=== PATIENT | male | born 1965 | race Caucasian/White ===

== ENCOUNTER 2023-01-02 09:18 | Outpatient (CLI) | payer OTHER, SELFPAY | END 2023-01-02 09:19 | disposition home or self-care (01) | PROVIDERS: PCP Family Medicine; Visit Provider Family Medicine | DX: L50.9 Urticaria, unspecified (principal) | CPT/HCPCS: 80048; 85025; 85651 ==

== ENCOUNTER 2023-05-19 16:20 | Outpatient (CLI) | payer OTHER, SELFPAY ==
[2023-05-19 22:01] LABS: Amphetamine Screen Urine Negative (Negative); Barbiturate Screen Urine Negative (Negative); Benzodiazepines Screen Urine Negative (Negative); Cannabinoid Screen Urine Negative (Negative); Cocaine Screen Urine Negative (Negative); Methadone Screen Urine Negative (Negative); Methamphetamines Screen Urine Negative (Negative); Opiate Screen Urine Negative (Negative); Oxycodone Screen Urine Negative (Negative); Phencyclidine Screen Urine Negative (Negative); Tricyclic Antidepressant Urine Negative (Negative)
== END 2023-05-19 16:21 | disposition home or self-care (01) ==
PROVIDERS: PCP Family Medicine; Visit Provider Family Medicine
DX: R41.0 Disorientation, unspecified (principal); R35.0 Frequency of micturition; Z13.29 Encounter for screening for other suspected endocrine disorder; Z02.83 Encounter for blood-alcohol and blood-drug test
CPT/HCPCS: 80053; 80306; 81015; 84443; 85025

== ENCOUNTER 2023-05-30 07:05 | Outpatient (CLI) | payer OTHER, SELFPAY ==
--- NOTE | 2023-05-30 07:15 | CRLHL7_ITS ---
For Patients: As a result of the Century Cures Act, medical imaging exams and procedure reports are released immediately into your electronic medical record. You may view this report before your referring provider. If you have questions, please contact your health care provider. INDICATION: Other symptoms and signs involving cognitive function. TECHNIQUE: Multiplanar multisequence noncontrast MR images acquired through the brain. COMPARISON: None. FINDINGS: The ventricles and sulci are within normal limits for patient age. No mass effect or midline shift. No parenchymal signal abnormalities. No intracranial hemorrhage or pathologic extra-axial fluid collection. No diffusion restriction to suggest acute infarction. The major arterial flow voids of the skullbase are preserved. The globes are symmetric. Minimal paranasal sinus mucosal thickening. Minimal left mastoid fluid. Non-expansile T2 hyperintensity in the right petrous apex, most typical for trapped fluid. Incidental small Tornwaldt cyst. IMPRESSION: Unremarkable noncontrast MRI of the brain. Dictated by Al Herman MD @ 05/30/2023 1:03:54 PM (Electronically Signed)
== END 2023-05-30 07:06 | disposition home or self-care (01) ==
LOC: MRI 07:05
PROVIDERS: PCP Family Medicine; Visit Provider Family Medicine
DX: R41.89 Other symptoms and signs involving cognitive functions and awareness (principal)
CPT/HCPCS: 70551

== ENCOUNTER 2023-11-07 15:06 | Outpatient (CLI) | payer OTHER, SELFPAY ==
--- NOTE | 2023-11-07 15:30 | MR_ITS ---
[facility] [address] [facility] [address] Phone:?[phone] Fax:?[phone] Referring Physician Information: Mateo Reza M.D. [address] [place] [id number] Phone:?[phone] Fax:?[phone] Patient:Kellie Can D.O.B:?1965 Sex:?Male Phone:?[phone] [facility] MRN:?[id number] Exam Date:?11/07/2023 EXAM: MRI of the LEFT SHOULDER, without contrast CLINICAL HISTORY: Pain in the left shoulder. Evaluate for rotator cuff tear. COMPARISONS: Plain radiographs 10/27/2023. TECHNICAL: MRI sequences of the left shoulder: Axials: PD, T2 Coronals: PD, STIR, T2 Sagittals: PD, T2 SEDATION: None CONTRAST: None FINDINGS: Bones: No fracture or suspicious bone marrow signal abnormality. Coracoacromial arch: Acromion: No os acromiale. Type II acromion. Acromiohumeral space: The bony distance is unremarkable. Acromioclavicular joint: No acute injury, arthropathy, or inferior hypertrophy. Coracoclavicular ligament: The coracoclavicular ligament is intact. Rotator cuff muscles/tendons: Supraspinatus: The supraspinatus tendon and muscle are intact. Infraspinatus: The infraspinatus tendon and muscle are intact. Teres minor: The teres minor tendon and muscle are intact. Subscapularis: Slight subscapularis tendinopathy. No muscular atrophy. Labrum and glenohumeral joint: No evidence of labral tear although evaluation is suboptimal because of nonarthrogram technique. Physiologic amount of joint fluid. No discrete chondral defect or subchondral bone marrow edema/cystic change is seen. There is soft tissue thickening within the rotator interval. There is edema-like signal within and thickening of the glenohumeral joint capsule/inferior glenohumeral ligament. Proximal biceps tendon, long head and short heads: The long and short heads of the proximal biceps tendon are intact. Bursae: Subacromial/subdeltoid: No convincing subacromial bursal thickening/bursitis. Subcoracoid: No convincing subcoracoid bursal thickening/bursitis. IMPRESSION: 1. The most striking findings in this case are those associated with adhesive capsulitis; correlate with active and passive range of motion. 2. Slight subscapularis tendinopathy. 3. Otherwise, unremarkable MRI of the left shoulder without discrete rotator cuff tendon tear, rotator cuff muscular atrophy, or biceps pathology. No evidence of labral tear on this nonarthrogram study. RCB Electronically signed on 11/07/2023 5:00:00 PM by Colten Magallon M.D.
== END 2023-11-07 15:07 | disposition home or self-care (01) ==
LOC: MRI 15:06
PROVIDERS: PCP Family Medicine; Visit Provider Orthopaedic Surgery
DX: M25.512 Pain in left shoulder (principal); M75.02 Adhesive capsulitis of left shoulder
CPT/HCPCS: 73221

== ENCOUNTER 2024-01-07 16:47 | Emergency (ER) | payer OTHER, SELFPAY ==
[2024-01-07] VITALS (7 sets, daily range): BP systolic 112–124; BP diastolic 70–85; PULSE 53–62; RESP 12–16; TEMP 36.3; O2SAT 97–100; BMI 21.0
--- NOTE | 2024-01-07 17:15 | ED_ITS ---
HPI - General Adult General Date Seen: 01/07/24 Chief complaint: Cough Stated complaint: cold and cough-vomiting blood clots Time Seen by Provider: 01/07/24 16:52 Source: patient Mode of arrival: ambulatory Limitations: no limitations History of Present Illness HPI narrative: Patient is a 58-year-old male presenting to the emergency department for cough and hemoptysis. States she has been sick with a cough for the past week but has been having worsening of the symptoms. Denies having symptoms like this before. Does states he has been having chills, weakness, dizziness. Does have chest pain when he is coughing. Has not had any fevers. Is not aware of any sick contacts. No history of blood clots. Does smoke cigarettes and states he has less than a pack a day but also vapes medical marijuana. No history of cancer. States the hemoptysis started today and he is it is multiple clots that he coughed up. States he has been staying well hydrated. Related Data Home Medications Medication Instructions Recorded Confirmed Medical Cannibis PO 05/06/22 11/19/23 Previous Rx's Medication Instructions Recorded albuterol sulfate 90 mcg/actuation 2 puff inhalation Q4-6H PRN 06/24/23 aerosol inhaler shortness of breath or wheezing #8.5 grams trazodone 100 mg tablet 50 - 100 mg (0.5 - 1 x 100 mg) PO 11/26/23 .hs #90 tabs albuterol sulfate 90 mcg/actuation 2 puff inhalation Q4-6H PRN 01/07/24 aerosol inhaler shortness of breath or wheezing #8.5 grams azithromycin 250 mg tablet See Rx Instructions PO .COMPLEX #6 01/07/24 (Zithromax) tabs Allergies Allergy/AdvReac Type Severity Reaction Status Date / Time naproxen Allergy Severe Hives Verified 01/07/24 18:49 NSAIDS (Non-Steroidal Allergy Severe Hives Verified 01/07/24 18:49 Anti-Inflamma penicillin V Allergy Severe Hives Verified 01/07/24 18:49 shellfish derived Allergy Unknown Unknown Verified 01/07/24 18:49 Review of Systems Status of ROS: Reports: 10 or more systems reviewed and unremarkable except as noted in History and below PFSH PFS Medical History Cognitive decline ?R41.89 - Other symptoms and signs involving cognitive functions and awareness (ICD-10) Urticaria ?L50.9 - Urticaria, unspecified (ICD-10) Major depression, recurrent ?F33.9 - Major depressive disorder, recurrent, unspecified (ICD-10) History of Helicobacter pylori infection ?Z86.19 - Personal history of other infectious and parasitic diseases (ICD-10 ) Hearing loss ?H91.90 - Unspecified hearing loss, unspecified ear (ICD-10) Chronic pain in left foot ?M79.672 - Pain in left foot (ICD-10) ?G89.29 - Other chronic pain (ICD-10) Chronic low back pain ?M54.50 - Low back pain, unspecified (ICD-10) ?G89.29 - Other chronic pain (ICD-10) [facility] (generalized anxiety disorder) ?F41.1 - Generalized anxiety disorder (ICD-10) Insomnia ?G47.00 - Insomnia, unspecified (ICD-10) Surgical History Status post hammer toe correction (08/17/18) ?Z98.890 - Other specified postprocedural states (ICD-10) ?Z87.39 - Personal history of other diseases of the musculoskeletal system and connective tissue (ICD-10) History of appendectomy (2008) ?Z90.49 - Acquired absence of other specified parts of digestive tract (ICD- 10) Family History Mother Breast cancer Father Myocardial infarction Diabetes Social History Narrative: - Radha, [employer], smoker, occasional EtOH Medical marijuana use Smoking Status: Current every day smoker Do you use any of these nicotine containing products: None Second hand tobacco smoke exposure: Yes ( smokes) Non-prescribed substance use: denies use Little interest or pleasure in doing things: not at all Feeling down, depressed, or hopeless: not at all Exam Narrative: Exam Narrative: Const: Well-nourished, Well-developed, in mild distress Eyes: PERRL, no conjunctival injection, and symmetrical lids HENT: Atraumatic external nose and ears. Moist mucous membranes. Neck: Symmetric, trachea midline, No thyromegaly. CVS: RRR, No murmurs or gallops. Peripheral pulses 2+ and equal in all extremities RESP: Unlabored respiratory effort. Clear to auscultation bilaterally. GI: Nontender/Nondistended, No rebound or guarding. MSK:Extremities w/o deformity, Normal Active ROM Skin: Warm, Dry. No rashes or lesions. Neuro: Normal Muscle tone, No focal neurological deficits. Psych: Awake, Alert, & Oriented x3. Appropriate mood and affect. Const: Vital Signs, click to edit/add: Vital Signs - 24 hr 01/07/24 16:52 01/07/24 17:54 01/07/24 18:02 Temperature 97.4 F L Pulse Rate 61 58 L Pulse Rate [Pulse Oximeter] 62 Respiratory Rate 14 14 16 Blood Pressure 112/81 120/85 Blood Pressure [Ri ght Upper Arm] 123/76 Pulse Oximetry 100 100 100 Oxygen Delivery Me thod Room Air 01/07/24 18:31 01/07/24 19:01 01/07/24 19:31 Temperature Pulse Rate 53 L 57 L 58 L Pulse Rate [Pulse Oximeter] Respiratory Rate 14 12 14 Blood Pressure 116/71 113/70 124/75 Blood Pressure [Ri ght Upper Arm] Pulse Oximetry 97 99 98 Oxygen Delivery Me thod 01/07/24 19:37 Temperature 97.4 F L Pulse Rate Pulse Rate [Pulse Oximeter] 62 Respiratory Rate 16 Blood Pressure Blood Pressure [Ri ght Upper Arm] 123/76 Pulse Oximetry Oxygen Delivery Me thod Course Vital Signs Vital signs: Initial Vital Signs Temperature 97.4 F L 01/07/24 16:52 Temperature Source Temporal Artery Scan 01/07/24 16:52 Pulse Rate 62 01/07/24 16:52 Pulse Rhythm Regular 01/07/24 16:52 Respiratory Rate 14 01/07/24 16:52 Blood Pressure 123/76 01/07/24 16:52 Blood Pressure Mean 91 01/07/24 16:52 Blood Pressure Position Sitting 01/07/24 16:52 Pulse Oximetry 100 01/07/24 16:52 Oxygen Delivery Method Room Air 01/07/24 16:52 Vital Signs Temperature 97.4 F L 01/07/24 16:52 Pulse Rate 62 01/07/24 16:52 Respiratory Rate 14 01/07/24 16:52 Blood Pressure 123/76 01/07/24 16:52 Pulse Oximetry 100 01/07/24 16:52 Oxygen Delivery Method Room Air 01/07/24 16:52 Temperature 97.4 F L 01/07/24 19:37 Pulse Rate 62 01/07/24 19:37 Respiratory Rate 16 01/07/24 19:37 Blood Pressure 123/76 01/07/24 19:37 Pulse Oximetry 98 01/07/24 19:31 Oxygen Delivery Method Room Air 01/07/24 16:52 Medications Administered Medications: Discontinued Medications Generic Name Dose Route Start Last Admin Trade Name Luisq PRN Reason Stop Dose Admin Albuterol 2.5 mg 01/07/24 17:11 01/07/24 17:47 Albuterol Sulfate 2.5 Mg/3 Ml Vial.Neb NEB 01/07/24 17:12 2.5 mg ONCE ONE Administration Albuterol 5 mg 01/07/24 18:55 01/07/24 19:04 Albuterol Sulfate 2.5 Mg/3 Ml Vial.Neb NEB 01/07/24 18:56 5 mg ONCE ONE Administration Medical Decision Making [facility] Narrative Medical decision making narrative: Patient is a 58-year-old male presenting for cough and hemoptysis. We will do a COVID/flu/RSV test, EKG, BMP, CBC, coags, D-dimer. Was lungs sounded clear I will try some albuterol this even helped with his cough. Imaging will be done pending D-dimer results. Patient's lab work all returned showing no concerning abnormalities. COVID/flu/RSV is negative. Troponin within normal limits. Urinalysis shows no concerning findings. Coags are within normal limits. Patient does think he had some improvement with the albuterol treatments so another dose was given. Will do a CT scan of the chest with contrast to look for signs of cancer. Reviewed by myself and the radiologist and shows no concerning abnormalities. At this time I cannot definitively say what is causing his hemoptysis but he is having u pper respiratory symptoms similar to that of a respiratory infection. I will start the patient on a Z-Aleksandr. I informed him to have close follow-up with his primary care provider if symptoms persist. He is agreeable to this plan. Also give him an albuterol inhaler and spacer as he said it helped his symptoms. Lab Data Labs: Lab Results 01/07/24 01/07/24 01/07/24 Range/Units 17:45 17:45 17:45 WBC 8.82 (4.50-11.00) K/uL RBC 5.24 (4.30-5.90) m/uL Hgb 14.9 (13.5-17.5) gm/dL Hct 45.7 (37.0-53.0) % MCV 87 (80-100) fL MCH 28 (26-34) pg MCHC 33 (32-36) gm/dL RDW Coeff of Natalia 13.0 (11.5-15.5) % Plt Count 326 (140-440) K/uL Neut % (Auto) 66.8 (42.0-72.0) % Lymph % (Auto) 24.6 (20-44) % [place] % (Auto) 5.4 (0.0-11.0) % Eos % (Auto) 2.3 (0.0-7.0) % Baso % (Auto) 0.7 (0.0-3.0) % Neut # (Auto) 5.89 (1.7-7.0) K/uL Lymph # (Auto) 2.17 (0.90-2.90) K/uL [place] # (Auto) 0.50 (0.00-0.90) K/UL Eos # (Auto) 0.20 (0.00-0.50) K/uL Baso # (Auto) 0.06 (0.00-0.30) K/uL Abs Immat Gran (auto) 0.02 (0.00-0.30) K/uL Imm/Tot Granulo (auto) 0.2 % INR 0.89 L (0.91-1.10) APTT Cancelled 33 D-Dimer Quant (PE/DVT) 0.34 (0.00-0.50) ug/ml Sodium 140 (135-149) mmol/L Potassium 4.2 (3.6-5.1) mmol/L Chloride 103 (96-114) mmol/L Carbon Dioxide 27 (20-32) mmol/L Anion Gap 10 (7-15) mEq/L BUN 12 (7-30) mg/dL Creatinine 1.0 (0.5-1.5) mg/dL Estimated Creat Clear 88.90 Estimated GFR 88 ml/min Glucose 88 (60-115) mg/dL Calcium 9.8 (8.4-10.6) mg/dL Troponin I < 0.01 L Cancelled (0.01-0.04) ng/mL Urine Color Yellow (Yellow) Urine Appearance Clear (Clear) Urine pH 6.0 (5.0-8.5) Ur Specific [place] <= 1.005 (1.000-1.030) Urine Protein Negative (Negative) Urine Glucose (UA) Negative (Negative) Urine Ketones Negative (Negative) Urine Blood Negative (Negative) Urine Nitrite Negative (Negative) Urine Bilirubin Negative (Negative) Urine Urobilinogen 0.2 (0.2-1.0) Ur Leukocyte Esterase Negative (Negative) Urine RBC 0-2 (0-2) Urine WBC 0-2 (0-5) Ur Squamous Epith Cells Few (None-Few) Urine Bacteria None (None) SARS-CoV-2 (PCR) Negative SARS-CoV-2 (Negative) Influenza Type A (PCR) Negative PCR FLU A (Negative) Influenza Type B (PCR) Negative PCR FLU B (Negative) RSV (PCR) Negative PCR RSV (Negative) Imaging Data CT scan chest: Radiologist's impression: Unremarkable CT of the chest. No acute findings or findings to explain the patient`s hemoptysis. Please note that all CT scans at this facility use dose modulation, iterative reconstruction, and/or weight-based dosing when appropriate to reduce radiation dose to as low as reasonably achievable. Dictated by Ashwin Choudhury MD @ 01/07/2024 7:08:25 PM ECG Data Attestation: I personally reviewed and interpreted this ECG as follows: Prior ECG tracings: not available for review Interpretation: Sinus bradycardia rate 57 beats per minute, normal intervals, normal axis, no ST or T-wave abnormalities. Discharge Plan Discharge Clinical Impression: Hemoptysis Patient Disposition: Home, Self-Care Condition: Improved Instructions: Coughing Up Blood (Hemoptysis) (ED) Additional Instructions: Take the azithromycin as directed. If the coughing becomes difficult to control try using the inhaler and make sure you use a spacer with it. If you continue to have hemoptysis over the next few days you should follow-up with your primary care provider for further outpatient testing. Return to emergency department for new or worsening symptoms. Prescriptions: New azithromycin [Zithromax] 250 mg tablet See Rx Instructions .ROUTE .COMPLEX Qty: 6 0RF Rx Instructions: For 250 mg dose pack: take 500 mg today (day 1), then 250 mg for 4 days (days 2-5) albuterol sulfate 90 mcg/actuation HFA aerosol inhaler 2 puff inhalation Q4-6H PRN (Reason: shortness of breath or wheezing) Qty: 8.5 0RF No Action Medical Cannibis PO albuterol sulfate 90 mcg/actuation HFA aerosol inhaler 2 puff inhalation Q4-6H PRN (Reason: shortness of breath or wheezing) Qty: 8.5 0RF trazodone 100 mg tablet 50 - 100 mg PO .hs Qty: 90 1RF Follow Up/Referrals: Miguelito Woodard MD [Primary Care Provider] - Stand Alone Forms: [employer] Info Instructions
[2024-01-07] MEDS: ALBUTEROL SULFATE 2.5 MG/3 ML VIAL.NEB NEB (17:47)
[2024-01-07 18:01] LABS: Basophils Absolute Auto 0.06 K/uL (0.00-0.30); Basophils Percent Auto 0.7 % (0.0-3.0); Eosinophils Percent Auto 2.3 % (0.0-7.0); Hematocrit 45.7 % (37.0-53.0); Hemoglobin* 14.9 gm/dL (13.5-17.5); Immature Granulocytes Abs Auto 0.02 K/uL (0.00-0.30); Immature Granulocytes Pct Auto 0.2 %; Lymphocytes Absolute Auto 2.17 K/uL (0.90-2.90); Lymphocytes Percent Auto 24.6 % (20-44); Mean Corpuscular HGB Conc 33 gm/dL (32-36); Mean Corpuscular Hemoglobin 28 pg (26-34); Mean Corpuscular Volume 87 fL (80-100); Monocytes Percent Auto 5.4 % (0.0-11.0); Neutrophils Absolute Auto 5.89 K/uL (1.7-7.0); Neutrophils Percent Auto 66.8 % (42.0-72.0); Platelet Count* 326 K/uL (140-440); Red Blood Count 5.24 m/uL (4.30-5.90); White Blood Count* 8.82 K/uL (4.50-11.00)
[2024-01-07 18:02] LABS: Slide Review Reflex No
[2024-01-07 18:13] LABS: Chloride* 103 mmol/L (96-114)
[2024-01-07 18:14] LABS: Potassium* 4.2 mmol/L (3.6-5.1); Sodium* 140 mmol/L (135-149)
[2024-01-07 18:16] LABS: Estimated Glomerular Filt Rate 88 ml/min; INR 0.89 (0.91-1.10); Partial Thromboplastin Time* 33 Seconds (23-33); Prothrombin Time 12.6 Seconds
[2024-01-07 18:17] LABS: Anion Gap 10 mEq/L (7-15); Blood Urea Nitrogen* 12 mg/dL (7-30); Calcium* 9.8 mg/dL (8.4-10.6); Carbon Dioxide* 27 mmol/L (20-32); Glucose* 88 mg/dL (60-115)
[2024-01-07 18:18] LABS: D Dimer Quantitative* 0.34 ug/ml (0.00-0.50)
[2024-01-07 18:23] LABS: Appearance Urine Clear (Clear); Bilirubin Urine Negative (Negative); Blood Urine Negative (Negative); Color Urine Yellow (Yellow); Glucose Urine Negative (Negative); Ketones Urine Negative (Negative); Leukocyte Esterase Urine Negative (Negative); Nitrite Urine Negative (Negative); Protein Urine Negative (Negative); Specific Gravity Urine <= 1.005 (1.000-1.030); Urobilinogen Urine 0.2 (0.2-1.0)
[2024-01-07 18:29] LABS: Troponin I* < 0.01 ng/mL (0.01-0.04)
--- NOTE | 2024-01-07 18:32 | CT_ITS ---
Patient: RITA ALCANTARA Facility:?[facility] Patient ID:?[id number] Site Patient ID:?[id number] Site :?1965 Study:?CT-Chest W/ 75CC ISOVUE 370-01/07/2024 6:56:11 PM Ordering Physician:BLAIR Final Report: INDICATION: Hemoptysis. TECHNIQUE: CT chest was acquired with 75 cc Isovue 370 IV contrast. COMPARISON: Chest radiograph 01/14/2022. FINDINGS: Lungs and pleura: Mild to moderate centrilobular and mild paraseptal emphysema. No consolidation or suspicious nodule. No pleural effusions, pleural thickening, or pneumothorax. The central airways are clear. Heart and vasculature: Heart size is normal. Thoracic aorta and pulmonary artery are normal in caliber. No pulmonary embolism or right heart strain. No pericardial effusion. Lymph nodes/mediastinum: Small calcified lymph node within the anterior mediastinum. Chest wall: No masses. Upper abdomen: Normal. Bones: Unremarkable for age. IMPRESSION: Unremarkable CT of the chest. No acute findings or findings to explain the patient`s hemoptysis. Please note that all CT scans at this facility use dose modulation, iterative reconstruction, and/or weight-based dosing when appropriate to reduce radiation dose to as low as reasonably achievable. Dictated by Ashwin Choudhury MD @ 01/07/2024 7:08:25 PM Signed by:?Ashwin Choudhury MD @01/07/2024 7:08:25 PM (Electronic Signature)
[2024-01-07 18:46] LABS: RBC Urine 0-2 (0-2); Squamous Epithelial Cell Urine Few (None-Few); WBC Urine 0-2 (0-5)
[2024-01-07 18:49] LABS: PCR FLU A Negative PCR FLU A (Negative); PCR FLU B Negative PCR FLU B (Negative); PCR RSV Negative PCR RSV (Negative); SARS PCR* Negative SARS-CoV-2 (Negative)
[2024-01-07] MEDS: ALBUTEROL SULFATE 2.5 MG/3 ML VIAL.NEB 5 MG NEB (19:04)
== END 2024-01-07 19:37 | disposition home or self-care (01) ==
PROVIDERS: Emergency Provider Student in an Organized Health Care Education/Training Program; PCP Family Medicine
DX: R04.2 Hemoptysis (principal)
CPT/HCPCS: 36415; 71260; 80048; 81001; 84484; 85025; 85379; 85610; 85730; 87631; 93005; 94640; 99283; 99284; 99285; Q9967

== ENCOUNTER 2025-05-10 08:52 | Outpatient (CLI) | payer OTHER, SELFPAY | END 2025-05-10 08:53 | disposition home or self-care (01) | PROVIDERS: PCP Family Medicine; Visit Provider Family Medicine | DX: Z12.5 Encounter for screening for malignant neoplasm of prostate (principal); Z13.6 Encounter for screening for cardiovascular disorders; Z13.9 Encounter for screening, unspecified | CPT/HCPCS: 80048; 80061; G0103 ==